=== PATIENT | female | born 1995 | race Caucasian/White ===

== ENCOUNTER 2019-02-05 22:31 | Emergency (ER) | payer OTHER ==
[2019-02-06] MEDS ORDERED: PREDNISONE 20 MG TABLET PO ONE (03:48)
[2019-02-06] MEDS ORDERED: EPINEPHRINE INJ/PF 1 MG/1 ML AMPULE IM ONE (03:48)
--- NOTE | 2019-02-06 03:50 | ER Document Report ---
HPI - HPI Time Seen by Provider: 02/06/19 03:28 Pain Level: 2 Context: Patient is a 23-year-old female that comes to the emergency department for chief complaint of widespread hives. She started yesterday after she ate a strawberry clear. She has had a hives in the past but never this bad. She tried Benadryl throughout the day, she tried Zantac, symptoms did not improve at all. She denies difficulty swallowing or breathing, swelling of the face, tongue, lips, d ifficulty swallowing. She is on vitamins, no other medications. - NEURO Neurology: DENIES: Headache, Weakness, Vision blurred, Dizzinesss / Vertigo - REPRODUCTIVE Reproductive: DENIES: : - DERM Skin Color: Normal Past Medical History - General Information source: Patient - Social History Smoking Status: Never Smoker Frequency of alcohol use: None Drug Abuse: None Lives with: Family Family History: Reviewed & Not Pertinent Patient has suicidal ideation: No Patient has homicidal ideation: No - Medical History Medical History: Negative Renal/ Medical History: Denies: Hx Peritoneal Dialysis Surgical Hx: Negative - Immunizations Immunizations up to date: Yes Hx Diphtheria, Pertussis, Tetanus Vaccination: Yes Vertical Provider Document - CONSTITUTIONAL General Appearance: WD/WN, No Apparent Distress - INFECTION CONTROL TRAVEL OUTSIDE OF THE [place] IN LAST 30 DAYS: No - HEENT HEENT: Atraumatic, Normal ENT Exam - Clear airway, normal lips, tongue, uvula, posterior pharynx, Normocephalic - NECK Neck: Normal Inspection - RESPIRATORY Respiratory: Breath Sounds Normal, No Respiratory Distress - CARDIOVASCULAR Cardiovascular: Regular Rate, Regular Rhythm - GI/ABDOMEN Gastrointestinal: Abdomen Soft, Abdomen Non-Tender - BACK Back: Normal Inspection - MUSCULOSKELETAL/EXTREMETIES Musculoskeletal/Extremeties: MAEW, FROM, Non-Tender - NEURO Level of Consciousness: Awake, Alert, Appropriate - DERM Integumentary: Warm, Dry, Rash - Widespread urticaria over the extremities, chest, abdomen, and forehead Course - Re-evaluation Re-evalutation: Patient does have widespread urticaria. Because of this she was given epinephrine for her comfort, however this did not make a significant difference. She has been started on steroids. She was reevaluated. She has not had any evidence of anaphylaxis or any additional symptoms other than the hives. She is requesting to leave and try the steroids at home. She states she will follow-up and she will return if she worsens in any way. She was discharged with return precautions. - Vital Signs Vital signs: Temp Pulse Resp BP Pulse Ox 97.4 F 77 20 109/72 100 02/05/19 22:51 02/05/19 22:51 02/05/19 22:51 02/05/19 22:51 02/05/19 22:51 Discharge - Discharge Clinical Impression: Hives Condition: Stable Disposition: HOME, SELF-CARE Additional Instructions: Your evaluation shows urticaria (hives). The exact cause is uncertain but I would avoid the same food product you had yesterday. Take prednisone as prescribed, take the cetirizine for 1 week, continue your Zantac 1-2 times daily for the next 7 days as well. Return immediately if you worsen in any way including swelling of the lips, tongue, throat, difficulty breathing, passing out, or any other concerning symptoms. Prescriptions: Cetirizine HCl [24Hour Allergy] 10 mg PO DAILY #30 tablet Prednisone [Deltasone 10 mg Tablet] 10 mg PO ASDIR PRN #21 tablet PRN Reason: Forms: Treatment of Relative/Child
[2019-02-06 04:59] VITALS: BP 121/75
== END 2019-02-06 04:59 | disposition home or self-care (01) ==
LOC: ER 22:31
DX: K59.00 Constipation, unspecified (principal)
CPT/HCPCS: 99282; 96372; J0171; J7512